=== PATIENT | male | born 1945 | race Native Hawaiian/Other Pacific Islander ===

== ENCOUNTER 2021-01-10 08:48 | Outpatient (CLI) | payer OTHER | END 2021-01-10 19:37 | disposition home or self-care (01) | LOC: INF 08:48 | PROVIDERS: ATTEND Internal Medicine | DX: Z23 Encounter for immunization (principal) | CPT/HCPCS: 96372 ==

== ENCOUNTER 2021-01-30 08:03 | Outpatient (CLI) | payer OTHER | END 2021-01-30 19:49 | disposition home or self-care (01) | LOC: INF | PROVIDERS: ATTEND Internal Medicine | DX: Z23 Encounter for immunization (principal) | CPT/HCPCS: 96372 ==